=== PATIENT | female | born 1975 | race Caucasian/White ===

== ENCOUNTER 2017-04-05 06:50 | Inpatient (IN) | payer BC ==
[2017-03-22 10:40] VITALS: BP 122/84
[2017-04-05] VITALS (8 sets, daily range): BP systolic 138–143; BP diastolic 77–106; O2SAT 96
[~2017-04-05] VITALS: Ht 167.6 cm; Wt 97.1 kg
[~2017-04-05 06:50] MED LIST: ALEV220C2 PO; ASCO25TA PO; PRENTAB16 PO
[2017-04-05] MEDS ORDERED: LR 1,000 ML IV SCH ×3 (07:00→11:15)
[2017-04-05] MEDS ORDERED: ACETAMINOPHEN 500 MG TAB PO ONE (07:00)
[2017-04-05] MEDS ORDERED: fentaNYL 100 MCG/2 ML INJECTION (J3010) As Ordered ONE ×2 (07:46→08:58)
[2017-04-05] MEDS ORDERED: MIDAZOLAM INJ 2 MG/2 ML VIAL (J2250) As Ordered ONE ×3 (07:46→09:10)
[2017-04-05] MEDS ORDERED: ceFAZolin 1GM INJ (J0690) As Ordered ONE (07:49)
[2017-04-05] MEDS ORDERED: EPINEPHrine INJ 1 MG/ML 1ML AMP As Ordered ONE (07:49)
[2017-04-05] MEDS ORDERED: TRANEXAMIC ACID 100 MG/ML 10ML VIAL As Ordered ONE (07:49)
[2017-04-05] MEDS ORDERED: BUPIVACAINE LIPOSOME/PF 1.3% 20 ML VIAL (13.3MG/ML)(EXPAREL) As Ordered ONE (07:49)
[2017-04-05] MEDS ORDERED: BUPIVACAINE HCL 0.25% 30 ML VIAL As Ordered ONE (07:49)
[2017-04-05] MEDS ORDERED: MIDAZOLAM INJ 2 MG/2 ML VIAL (J2250) IV ONE (08:30)
[2017-04-05] MEDS ORDERED: fentaNYL 100 MCG/2 ML INJECTION (J3010) IV ONE (08:30)
[2017-04-05] MEDS ORDERED: PROPOFOL 200 MG/20 ML VIAL As Ordered ONE ×4 (08:58→09:54)
[2017-04-05] MEDS ORDERED: ONDANSETRON 4MG/2ML VIAL (J2405) As Ordered ONE (08:58)
[2017-04-05] MEDS ORDERED: ePHEDrine SULFATE 25 MG/5 ML(5MG/ML) SYRINGE As Ordered ONE (09:30)
[2017-04-05] MEDS ORDERED: MORPHINE 1MG/ML IN 0.9% NACL 100ML IV BAG As Ordered ONE (10:41)
[2017-04-05] MEDS ORDERED: fentaNYL 100 MCG/2 ML INJECTION (J3010) IV PRN (11:00)
[2017-04-05] MEDS ORDERED: ONDANSETRON 4MG/2ML VIAL (J2405) IV PRN ×2 (11:00→11:15)
[2017-04-05] MEDS ORDERED: FLEET ENEMA PR PRN (11:15)
[2017-04-05] MEDS ORDERED: EPIDURAL/PCA KEYS XX PRN (11:15)
[2017-04-05] MEDS ORDERED: NALBUPHINE HCL 10 MG/ML AMP (J2300) IV PRN (11:15)
[2017-04-05] MEDS ORDERED: ACETAMINOPHEN TAB 650MG DOSE (2X325MG) PO PRN (11:15)
[2017-04-05] MEDS ORDERED: NALOXONE INJ 0.4 MG/1 ML VIAL (J2310) IV PRN (11:15)
[2017-04-05] MEDS ORDERED: MORPHINE 1MG/ML IN 0.9% NACL 100ML IV BAG IV PRN (11:15)
[2017-04-05] MEDS ORDERED: diphenhydrAMINE INJ 50MG/ML VIAL (J1200) IV PRN (11:15)
[2017-04-05] MEDS ORDERED: ONDANSETRON 4 MG TAB (S0181) PO PRN (12:45)
[2017-04-05] MEDS ORDERED: diphenhydrAMINE 25 MG CAP PO PRN (12:45)
[2017-04-05] MEDS: traMADol 50 MG TAB PO PRN ×3 (13:12→20:39)
[2017-04-05] MEDS ORDERED: dexameTHASONE 10 MG/1 ML VIAL PRES.FREE (J1100) ONE (13:50)
[2017-04-05] MEDS ORDERED: ROPIvacaine 0.5% 30 ML INJECTION (J2795) ONE (13:50)
[2017-04-05] MEDS ORDERED: WARFARIN SOD 5 MG TAB PO ONE (17:00)
[2017-04-05] MEDS ORDERED: WARFARIN SOD 5 MG TAB PO SCH (17:00)
[2017-04-06 02:00] VITALS: BP 133/84
[2017-04-06] MEDS: traMADol 50 MG TAB PO PRN ×3 (02:02→20:35)
[2017-04-06 06:00] VITALS: BP 157/80
[2017-04-06 06:41] LABS: MEAN CORPUSCULAR HGB CONC 33.3 g/dl (32.0-36.5); PLATELET COUNT, AUTOMATED 255 10^3/uL (150-450); RED CELL DISTRIBUTION WIDTH 12.7 % (11.5-14.5); WHITE BLOOD COUNT 17.1 10^3/uL (4.0-10.0)
[2017-04-06 06:49] LABS: INR 1.34
[2017-04-06 07:19] LABS: ANION GAP 5 MEQ/L (8-16); BLOOD UREA NITROGEN 10 MG/DL (7-18); CALCIUM LEVEL 8.7 MG/DL (8.5-10.1); CARBON DIOXIDE LEVEL 31 MEQ/L (21-32); CHLORIDE LEVEL 104 MEQ/L (98-107); CREATININE FOR GFR 0.74 MG/DL (0.55-1.02); GLOMERULAR FILTRATION RATE > 60.0 (>58); GLUCOSE, FASTING 112 MG/DL (70-105); POTASSIUM SERUM 3.6 MEQ/L (3.5-5.1); SODIUM LEVEL 140 MEQ/L (136-145)
[2017-04-06] MEDS: MOM 30ML SUSPENSION UDC PO SCH ×2 (08:13→09:00)
[2017-04-06] MEDS: SENOKOT S TAB PO SCH ×2 (08:14→20:36)
[2017-04-06] MEDS: MIRALAX *UNIT DOSE* 17GM PACKET PO SCH ×2 (08:14→09:00)
--- NOTE | 2017-04-06 09:58 | REP ---
Clinical: Status post knee replacement. Technique AP and cross-table lateral views. Findings: The patient is status post right knee replacement with normal positioning and appearance to the femoral and tibial components. Overlying postsurgical changes appreciated. Impression: Status post right knee replacement. Signed by Jordon Tim MD 04/06/2017 09:49 A
[2017-04-06 10:00] VITALS: BP 142/84
[2017-04-06] MEDS ORDERED: KETOROLAC 30 MG/ML VIAL (J1885) As Ordered ONE (11:42)
[2017-04-06] MEDS ORDERED: ACETAMINOPHEN 500 MG TAB PO PRN (11:45)
[2017-04-06] MEDS ORDERED: KETOROLAC 30 MG/ML VIAL (J1885) IV ONE (12:00)
[2017-04-06 14:00] VITALS: BP 144/78
[2017-04-06] MEDS: ACETAMINOPHEN 500 MG TAB PO SCH ×2 (15:00→20:35)
[2017-04-06] MEDS ORDERED: WARFARIN SOD 5 MG TAB PO ONE (17:00)
[2017-04-06 20:25] VITALS: O2SAT 96
[2017-04-06] MEDS ORDERED: TEMAZEPAM 7.5 MG CAP PO ONE (21:00)
[2017-04-06 22:00] VITALS: BP 138/87
[2017-04-07] MEDS: traMADol 50 MG TAB PO PRN ×3 (01:59→10:44)
[2017-04-07] MEDS: ACETAMINOPHEN 500 MG TAB PO SCH (05:39)
[2017-04-07 06:00] VITALS: BP 136/84
[2017-04-07 06:59] LABS: MEAN CORPUSCULAR HEMOGLOBIN 29.7 pg (27.0-33.0); MEAN CORPUSCULAR HGB CONC 32.8 g/dl (32.0-36.5); MEAN CORPUSCULAR VOLUME 90.6 fl (80.0-96.0); PLATELET COUNT, AUTOMATED 240 10^3/uL (150-450); RED CELL DISTRIBUTION WIDTH 12.8 % (11.5-14.5); WHITE BLOOD COUNT 14.3 10^3/uL (4.0-10.0)
[2017-04-07 07:26] LABS: ANION GAP 7 MEQ/L (8-16); BLOOD UREA NITROGEN 10 MG/DL (7-18); CALCIUM LEVEL 8.6 MG/DL (8.5-10.1); CARBON DIOXIDE LEVEL 28 MEQ/L (21-32); CHLORIDE LEVEL 104 MEQ/L (98-107); CREATININE FOR GFR 0.73 MG/DL (0.55-1.02); GLOMERULAR FILTRATION RATE > 60.0 (>58); GLUCOSE, FASTING 114 MG/DL (70-105); POTASSIUM SERUM 3.7 MEQ/L (3.5-5.1); SODIUM LEVEL 139 MEQ/L (136-145)
[2017-04-07 07:38] LABS: INR 2.13
[2017-04-07] MEDS: SENOKOT S TAB PO SCH (07:54)
[2017-04-07] MEDS: MIRALAX *UNIT DOSE* 17GM PACKET PO SCH (07:54)
[2017-04-07] MEDS: MOM 30ML SUSPENSION UDC PO SCH (07:54)
[2017-04-07] MEDS ORDERED: TRAM50TA2 PO (08:44)
[2017-04-07] MEDS ORDERED: COUM2.5T17 PO (08:44)
--- NOTE | 2017-04-07 09:04 | RO ---
DATE OF PROCEDURE: 04/05/2017 PREPROCEDURE DIAGNOSIS: Right knee degenerative arthritis. POSTPROCEDURE DIAGNOSIS: Right knee degenerative arthritis. PROCEDURE: Right total knee arthroplasty using a size 3 cruciate-retraining femoral component with a size 2.5 tibial tray with a 12.5 mm rotating platform polyethylene insert and a 32 mm polyethylene button. All components were cemented. Prosthesis was made by [employer]; it was a PFC knee. SURGEON: Dr. Uri Grove INTEGRATIVE MEDICINE PHYSICIAN: Mr. Steve Sierra ANESTHESIA: Spinal with right femoral nerve block. ESTIMATED BLOOD LOSS: Less than 20 mL. SPECIMENS: Joint surface. COMPLICATIONS: None. DESCRIPTION OF PROCEDURE: Antibiotics were given intravenously preoperatively and a successful right femoral nerve block anesthetic and then a spinal anesthetic was induced. Tourniquet was placed on the right upper thigh and not inflated. Right lower extremity was prepped and draped in the usual sterile fashion, then the leg was elevated, then after the appropriate time out, the tourniquet was inflated for a total of 71 minutes. A longitudinal incision was made for a medial parapatellar approach to the knee after the tourniquet was inflated and appropriate time out had been done. Bovie cautery was used to coagulate crossing vessels. Medial parapatellar arthrotomy was performed, and then subperiosteal dissection over the proximal and medial portion of the tibia was performed, as well as the lateral portion of the tibia. The patella was then everted and the knee was flexed. The drill was placed down the center of the femoral canal, followed by the intramedullary jeanie with the distal femoral cutting jig set at 5 degrees valgus cut at 10 mm resection level for a right knee. Block was pinned into position. Distal femoral cut was performed. Noteworthy, in the preoperative examination or the pre incision examination under anesthesia, she had hyperextension of the knee and essentially full flexion, so she was very ligamentous lax. The AP sizing jig was then applied and measured for a size #3. The 3 degrees external rotation block was pinned into position, followed by the four-in-one block and then the anterior, posterior and chamfer cuts were performed, taking great care to protect the surrounding soft tissues. We then exposed the proximal tibia, used extramedullary alignment jig to estimate being parallel to the mechanical axis. We referenced off the medial tibial condyle, which was quite worn, at 4 mm resection level, we set the block at that position and then secondary check with extramedullary jeanie confirmed that we appeared to be parallel to the mechanical axis. Proximal tibial osteotomy was then performed. Laminar indigo mixer was then placed medially and a completion lateral meniscectomy was performed and debridement of posterior and lateral osteophytes, which were minimal. We then placed the laminar indigo mixer laterally and performed a completion medial meniscectomy with debridement of the posterior and medial osteophytes. The spacer blocks showed that the 12.5 actually fit the best. She still had a little bit of hyperextension, but we had to compromise that with being too tight in flexion, but otherwise the flexion and extension spaces were actually symmetric. This had to somehow with her anatomy, but I did overall feel that the 12.5 would give her the best stability. We then exposed the proximal tibia size for a 2.5 tray, which was pinned into position, followed by the reamer and broach and then the trial femoral and tibial tray was applied and we brought the knee into extension, everted the patella, performed the patellar osteotomy, sized for a 32 button. The lug hole was drilled. The patellofemoral joint was anatomic. I did trial back and forth between the 10 and the 12.5 and again the 12.5 seemed to fit the best. I just released a little bit of the posterior cruciate ligament (PCL). At this point, the Exparel was injected periosteally around the femur and the proximal tibia and around the capsular edges. We then removed all the trial component after drilling the lug holes for the femur. Mr. Sierra mixed the cement on the back table, as I prepared the bony surfaces for cementing with copious amount of pulsatile lavage irrigant solution. Mr. Sierra was also critical to the success of this difficult surgery by helping to apply appropriate soft tissue retraction, flex and extend the knee as needed, as well as help to close the wound and prepare the patient otherwise so that I could perform the operation smoothly and efficiently. After all the bony surfaces were thoroughly dried, we cemented the tibial tray, removed excess cement, applied the polyethylene and cemented the femoral component, removed excess cement, brought the knee into extension and cemented the patellar button, removed the excess cement and held the clamp with the knee in extension until the cement hardened, and as we were awaiting that we copiously pulsatile lavage irrigated out the knee joint, and then applied tranexamic acid and then began closing the arthrotomy with two #1 PDS sutures at the apex of the capsular insertion and one at the medial peripatellar area, then a double armed running #1 Stratafix was used to close the capsule . The tourniquet was then released. We copiously irrigated again and then closed the deep subdermal tissues with interrupted #2-0 PDS sutures. Skin was closed with patti, covered by Adaptic dry sterile bulky dressing. She was then transferred to the recovery room in stable condition. There were no intraoperative complications.
== END 2017-04-07 13:50 | disposition home health service (06) | DRG 302 ==
LOC: M OR 06:50 → EDUNIT# 08:45 → M MS5PR 11:50
PROVIDERS: ADMIT Orthopaedic Surgery; ATTEND Orthopaedic Surgery
PROC: 0SRC0J9 Replacement of Right Knee Joint with Synthetic Substitute, Cemented, Open Approach (ICD-10-PCS; principal; 2017-04-05 09:15)
DX: M17.11 Unilateral primary osteoarthritis, right knee (principal)

== ENCOUNTER → 2019-05-03 | Outpatient (CLI) | payer BC ==
[~2019-05-03] MED LIST changes: -ASCO25TA PO; +COUM2.5T17 PO; +TRAM50TA2 PO; +VITA1TAB23 PO
--- NOTE | 2019-05-03 14:44 | REP ---
TRIPLE PHASE BONE SCAN OF THE KNEES: Following the intravenous administration of 22 millicuries technetium 99m MDP, patient's knees are imaged in the flow phase showing no abnormal blood flow. Immediate blood pool and 2-hour delayed images are performed. Photopenic area in the right knee joint is compatible with a metallic prosthesis. There is periarticular uptake in the medial left knee joint, particularly in the left medial tibial plateau, consistent with arthritic changes at that location. There is very mild increased uptake in the medial and lateral tibia plateaus on the right adjacent to the margins of the metallic prosthesis. This may be postsurgical since the prosthesis was placed only 2 years ago. . No other abnormalities are seen. Unreviewed
== END ==
LOC: M RAD 11:02
PROVIDERS: ATTEND Physician Assistant Surgical
DX: Z96.651 Presence of right artificial knee joint (principal)
CPT/HCPCS: 78315; A9503

== ENCOUNTER → 2019-06-07 | Outpatient (REF) | payer BC ==
[2019-06-07 15:22] LABS: BASO # 0.1 10^3/uL (0.0-0.2); BASO % 0.8 % (0.0-1.0); EOS # 0.1 10^3/uL (0.0-0.5); EOS % 1.4 % (0.0-3.0); HEMATOCRIT 48.8 % (36.0-47.0); HEMOGLOBIN 15.5 g/dl (12.0-15.5); LYMPH # 2.6 10^3/uL (1.5-5.0); LYMPH % 27.5 % (24.0-44.0); MEAN CORPUSCULAR HEMOGLOBIN 29.1 pg (27.0-33.0); MEAN CORPUSCULAR HGB CONC 31.8 g/dl (32.0-36.5); MEAN CORPUSCULAR VOLUME 91.7 fl (80.0-96.0); MONO # 0.5 10^3/uL (0.0-0.8); MONO % 5.2 % (0.0-5.0); NEUTROPHILS # 6.1 10^3/uL (1.5-8.5); NEUTROPHILS % 64.7 % (36.0-66.0); PLATELET COUNT, AUTOMATED 294 10^3/uL (150-450); RED BLOOD COUNT 5.32 10^6/uL (4.00-5.40); WHITE BLOOD COUNT 9.4 10^3/uL (4.0-10.0)
[2019-06-07 15:41] LABS: ERYTHROCYTE SEDIMENTATION RATE 4 mm/hr (0-20)
== END ==
LOC: M LABDRAW1 11:11
PROVIDERS: ATTEND Orthopaedic Surgery
DX: M25.561 Pain in right knee (principal)

== ENCOUNTER → 2020-12-05 | Outpatient (REF) ==
[~2020-12-05] MED LIST changes: +ASCO250T20 PO; -VITA1TAB23 PO
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
== END ==
LOC: M PLAIMG 09:57
PROVIDERS: ATTEND Internal Medicine
DX: S89.91XA Unspecified injury of right lower leg, initial encounter (principal); S39.92XA Unspecified injury of lower back, initial encounter; V29.88XA Motorcycle rider (driver) (passenger) injured in other specified transport accidents, initial encounter; Y92.89 Other specified places as the place of occurrence of the external cause; Y93.9 Activity, unspecified; Y99.9 Unspecified external cause status